=== PATIENT | female | born 1990 | race African-American/Black ===

== ENCOUNTER 2019-03-14 16:01 | Emergency (ER) | payer SELFPAY ==
--- NOTE | 2019-03-14 18:16 | ER Document Report ---
HPI - HPI Time Seen by Provider: 03/14/19 17:44 Pain Level: 2 Notes: Patient is an otherwise healthy 28-year-old female presenting with dental pain that is been ongoing for 2 days. Patient denies any drainage from the area, denies any fevers. Patient reports history of dental pain and dental infections in the past. Patient reports she has no dentist at this time. Patient states she has taken Tylenol without relief. - REPRODUCTIVE Reproductive: DENIES: : Past Medical History - General Information source: Patient - Social History Smoking Status: Never Smoker Frequency of alcohol use: None Drug Abuse: None Family History: Reviewed & Not Pertinent - Medical History Medical History: Negative Surgical Hx: Negative - Immunizations Immunizations up to date: Yes Vertical Provider Document - CONSTITUTIONAL Notes: PHYSICAL EXAMINATION: GENERAL: Well-appearing, well-nourished and in no acute distress. HEAD: Atraumatic, normocephalic. EYES: Pupils equal round extraocular movements intact, conjunctiva are normal. ENT: Nares patent, multiple dental caries noted, but poor dentition. No drainable abscess identified. Erythema noted around tooth numbers 1 2 and 3 as well as 18 and 19. NECK: Normal range of motion LUNGS: No respiratory distress Musculoskeletal: Normal range of motion NEUROLOGICAL: Normal speech, normal gait. PSYCH: Normal mood, normal affect. SKIN: Warm, Dry, normal turgor, no rashes or lesions noted. Course - Re-evaluation Re-evalutation: No drainable abscess identified. Patient will be started on penicillin and encouraged to follow-up with dentist. The patient's emergency department workup and current diagnosis were explained to the patient and or family. Follow-up instructions were provided. Medications if prescribed were discussed. Instructions for when to return to the emergency department including specific worrisome symptoms were discussed with the patient and/or family. - Vital Signs Vital signs: Temp Pulse Resp BP Pulse Ox 98.3 F 85 16 141/97 H 98 03/14/19 16:14 03/14/19 16:14 03/14/19 16:14 03/14/19 16:14 03/14/19 16:14 Discharge - Discharge Clinical Impression: Pain, dental, Dental infection Condition: Stable Disposition: HOME, SELF-CARE Additional Instructions: You have been seen for dental pain. It is very important that you follow-up with a dentist for definitive care. Take antibiotics as prescribed. Please return if you develop fever greater than 101, swelling in your face, vomiting, difficulty breathing or swallowing, or any other symptoms that are concerning to you. For pain you should take ibuprofen 800 mg every 8 hours as needed. [facility] [phone] Prescriptions: Penicillin V Potassium [Penicillin Vk 500 mg Tablet] 500 mg PO BID #20 tablet Forms: Parent Work Note
[2019-03-14 18:40] VITALS: BP 140/88
== END 2019-03-14 18:40 | disposition home or self-care (01) ==
LOC: ER 16:01
DX: K04.7 Periapical abscess without sinus (principal); K08.89 Other specified disorders of teeth and supporting structures
CPT/HCPCS: 99282

== ENCOUNTER 2020-03-27 13:32 | Emergency (ER) | payer SELFPAY ==
[2020-03-27 14:35] LABS: ABSOLUTE BASOPHILS # (AUTO) 0.1 10^3/uL (0.0-0.2); ABSOLUTE EOSINOPHILS # (AUTO) 0.1 10^3/uL (0.0-0.6); ABSOLUTE LYMPHOCYTES (AUTO) 2.8 10^3/uL (0.5-4.7); ABSOLUTE MONOCYTES (AUTO) 0.5 10^3/uL (0.1-1.4); ABSOLUTE NEUT (AUTO) 5.2 10^3/uL (1.7-8.2); BASOPHILS % (AUTO) 1.3 % (0-2); EOSINOPHILS % (AUTO) 0.8 % (0-6); HEMATOCRIT 29.1 % (36.0-47.0); HEMOGLOBIN 9.3 g/dL (12.0-15.5); LYMPHOCYTES % (AUTO) 32.4 % (13-45); MEAN CORPUSCULAR HEMOGLOBIN 23.7 pg (27.0-33.4); MEAN CORPUSCULAR VOLUME 74 fl (80-97); MONOCYTES % (AUTO) 5.4 % (3-13); PLATELET COUNT 440 10^3/uL (150-450); RED BLOOD COUNT 3.92 10^6/uL (3.72-5.28); RED CELL DISTRIBUTION WIDTH 18.1 % (11.5-14.0); SEGMENTED NEUTROPHILS % (AUTO) 60.1 % (42-78); TOTAL CELLS COUNTED % (AUTO) 100 %; WHITE BLOOD COUNT 8.7 10^3/uL (4.0-10.5)
[2020-03-27 15:51] LABS: APPEARANCE,URINE SLIGHTLY-CLOUDY; BILIRUBIN,URINE NEGATIVE (NEGATIVE); COLOR,URINE YELLOW; GLUCOSE, URINE NEGATIVE (NEGATIVE); KETONES,URINE NEGATIVE (NEGATIVE); LEUKOCYTE ESTERASE,URINE NEGATIVE (NEGATIVE); NITRITE,URINE NEGATIVE (NEGATIVE); PROTEIN,URINE 100 mg/dL (NEGATIVE); URINE SPECIFIC GRAVITY 1.016; UROBILINOGEN,URINE NEGATIVE mg/dL (<2.0)
--- NOTE | 2020-03-27 16:09 | ER Document Report ---
ED Medical Screen (RME) - General Stated Complaint: URINARY ISSUES/7 WEEK PREG Notes: Patient is a 29-year-old -Citizen Of [place] female who is G1, P0 at approximately 7 weeks gestation per last normal menstrual cycle who presents to the emergency department the chief complaint of vaginal bleeding that began earlier today at work. She states that a small amount of bright red blood. Denies any pain or cramping. Denies any other discharge. No urinary complaints, constipation or diarrhea. Has not seen OB yet. Is scheduled to follow-up with the health department. She is currently taking vitamins. Denies any other medical problems or allergies. I have treated and performed a rapid initial assessment of this patient. A comprehensive ED assessment and evaluation of the patient, analysis of test results and completion of medical decision making process will be conducted by additional ED providers. PHYSICAL EXAMINATION: GENERAL: Well-appearing, well-nourished and in no acute distress. A&Ox4. Answers questions appropriately. - Related Data Allergies/Adverse Reactions: No Known Allergies Allergy (Unverified 03/14/19 16:02) Past Medical History Renal/ Medical History: Denies: Hx Peritoneal Dialysis - Immunizations Immunizations up to date: Yes Physical Exam - Vital signs Vitals: Temp Pulse Resp BP Pulse Ox 98.9 F 95 20 157/97 H 97 03/27/20 15:12 03/27/20 15:12 03/27/20 15:12 03/27/20 15:12 03/27/20 15:12 Course - Vital Signs Vital signs: Temp Pulse Resp BP Pulse Ox 98.9 F 95 20 157/97 H 97 03/27/20 15:12 03/27/20 15:12 03/27/20 15:12 03/27/20 15:12 03/27/20 15:12 - Laboratory Result Diagrams: 03/27/20 14:20 Laboratory results interpreted by me: 03/27/20 03/27/20 03/27/20 14:20 14:20 14:40 Hgb 9.3 L Hct 29.1 L MCV 74 L MCH 23.7 L RDW 18.1 H Serum HCG, Qual POSITIVE H Urine Protein 100 H Urine Blood LARGE H Urine Ascorbic Acid 40 H
[2020-03-27 16:48] LABS: ALBUMIN 3.7 g/dL (3.5-5.0); ALKALINE PHOSPHATASE 54 U/L (38-126); ANION GAP 8 (5-19); ASPARTATE AMINO TRANSFERASE 15 U/L (14-36); BILIRUBIN,TOTAL 0.2 mg/dL (0.2-1.3); BLOOD UREA NITROGEN 15 mg/dL (7-20); CALCIUM 9.5 mg/dL (8.4-10.2); CARBON DIOXIDE 25 mmol/L (22-30); CHLORIDE 101 mmol/L (98-107); GLUCOSE 94 mg/dL (75-110); POTASSIUM 4.5 mmol/L (3.6-5.0); TOTAL PROTEIN 7.1 g/dL (6.3-8.2)
--- NOTE | 2020-03-27 17:17 | RADIOLOGY REPORT (SQ) ---
EXAM DESCRIPTION: U/S OB TRANSVAG W/DOPPLER IMAGES COMPLETED DATE/TIME: 03/27/2020 5:07 pm REASON FOR STUDY: preg bleeding COMPARISON: None. TECHNIQUE: Transvaginal static and realtime grayscale images acquired of the pelvis. Additional mari cted spectral and color Doppler images recorded. All images stored on PACs. bHCG: Unknown CLINICAL DATES: LMP 02/06/2020 LIMITATIONS: None. FINDINGS: FETUS: Single Living intrauterine . ULTRASOUND EGA: 7 weeks 0 days ULTRASOUND SAMI: 11/13/2020 EFW: Not applicable less than 20 weeks. CRL: 1 cm FHR: 140 beats per minute. SURVEY: Too early to assess. AMNIOTIC FLUID: Adequate amount. PLACENTA: Not yet developed due to early gestation. SUBCHORIONIC BLEED: Yes SIZE OF BLEED: 5.6 x 3.3 x 1.1 cm UTERUS: No masses. No anomalies. CERVICAL LENGTH: 3.2 cm Closed. RIGHT ADNEXA: Ovary not seen. No adnexal free fluid. No adnexal masses. LEFT ADNEXA: Ovary not seen. No adnexal free fluid. No adnexal masses. FREE FLUID: None. OTHER: No other significant finding. IMPRESSION: LIVING INTRAUTERINE . EGA 7 weeks 0 days Trimester of : First trimester - 0 to 13 weeks. TECHNICAL DOCUMENTATION: JOB ID: [id number] 2010 [employer]- All Rights Reserved rev-02/16 Reading location - IP/workstation name: [email or web address]
[2020-03-27] MEDS ORDERED: LABETALOL HCL 200 MG TABLET PO ONE (23:29)
--- NOTE | 2020-03-27 23:36 | ER Document Report ---
ED GI/ - General Chief Complaint: Vag Bleeding, +preg <12wks Stated Complaint: URINARY ISSUES/7 WEEK PREG Time Seen by Provider: 03/27/20 23:28 Primary Care Provider: [facility] [Provider Group] - Follow up as needed Mode of Arrival: Ambulatory Information source: Patient Notes: 29-year-old female presented to ED for complaint of vaginal bleeding. She states she is about 7 weeks 1 para 0. She states she had a small amount of bright red blood and so she came to the emergency room to be examined. She denied any pain or cramping. She has no other discharge or urinary complaint no fever no constipation no diarrhea. She states she is scheduled to follow-up with the health department. She is taking vitamins and is not using any other illicit drugs or smoking or drinking. She was seen in triage where labs and ultrasound were completed before I examined the patient. - HPI Patient complains to provider of: , Vaginal bleeding Onset: Other - 09/26/2020 Timing/Duration: Intermittent Quality of pain: No pain Severity in ED: None Pain Level: Denies Vaginal bleeding (Compared to normal period): Spotting : 1 Para: 0 heart tones (bpm): 140 EDC: 11/13/20 ABO type: A positive Rh factor: Positive OB ultrasound done: Yes Sexual history: Active Associated symptoms: None Exacerbated by: Denies Relieved by: Denies Similar symptoms previously: No Recently seen / treated by doctor: No - Related Data Allergies/Adverse Reactions: No Known Allergies Allergy (Unverified 03/14/19 16:02) Past Medical History - General Information source: Patient - Social History Smoking Status: Never Smoker Frequency of alcohol use: None Drug Abuse: None Family History: Reviewed & Not Pertinent Patient has suicidal ideation: No Patient has homicidal ideation: No - Past Medical History Cardiac Medical History: Reports: None Pulmonary Medical History: Reports: None EENT Medical History: Reports: None Neurological Medical History: Reports: None Endocrine Medical History: Reports: None Renal/ Medical History: Reports: None Malignancy Medical History: Reports: None GI Medical History: Reports: None Musculoskeletal Medical History: Reports None Skin Medical History: Reports None Psychiatric Medical History: Reports: None Traumatic Medical History: Reports: None Infectious Medical History: Reports: None Surgical Hx: Negative Past Surgical History: Reports: None - Immunizations Immunizations up to date: Yes Hx Diphtheria, Pertussis, Tetanus Vaccination: Yes Review of Systems - Review of Systems Constitutional: No symptoms reported EENT: No symptoms reported Cardiovascular: No symptoms reported Respiratory: No symptoms reported Gastrointestinal: No symptoms reported Genitourinary: No symptoms reported Female Genitourinary: , Vaginal bleeding Musculoskeletal: No symptoms reported Skin: No symptoms reported Hematologic/Lymphatic: No symptoms reported Neurological/Psychological: No symptoms reported -: Yes All other systems reviewed and negative Physical Exam - Vital signs Vitals: Temp Pulse Resp BP Pulse Ox 98.9 F 95 20 157/97 H 97 03/27/20 15:12 03/27/20 15:12 03/27/20 15:12 03/27/20 15:12 03/27/20 15:12 Interpretation: Normal - General General appearance: Appears well, Alert - HEENT Head: Normocephalic, Atraumatic Eyes: Normal Pupils: PERRL - Respiratory Respiratory status: No respiratory distress Chest status: Nontender Breath sounds: Normal Chest palpation: Normal - Cardiovascular Rhythm: Regular Heart sounds: Normal auscultation Murmur: No - Abdominal Inspection: Normal Distension: No distension Bowel sounds: Normal Tenderness: Nontender. No: Tender Organomegaly: No organomegaly - Back Back: Normal, Nontender - Extremities General upper extremity: Normal inspection, Nontender, Normal color, Normal ROM, Normal temperature General lower extremity: Normal inspection, Nontender, Normal color, Normal ROM, Normal temperature, Normal weight bearing. No: Mariela's sign - Neurological Neuro grossly intact: Yes Cognition: Normal Orientation: AAOx4 Priyanka Coma Scale Eye Opening: Spontaneous Priyanka Coma Scale Verbal: Oriented Priyanka Coma Scale Motor: Obeys Commands Priyanka Coma Scale Total: 15 Speech: Normal Motor strength normal: LUE, RUE, LLE, RLE Sensory: Normal - Psychological Associated symptoms: Normal affect, Normal mood - Skin Skin Temperature: Warm Skin Moisture: Dry Skin Color: Normal Course - Re-evaluation Re-evalutation: 03/28/20 08:04 Labs and ultrasound were discussed with patient written report of labs and ultrasound were given to patient. Patient is 7 weeks . She does not have any pain or discomfort with . Her main concern was had she had a miscarriage with this . The ultrasound did show a live 7-week intrauterine with a heartbeat of 140 I did explain to patient that most people who have some bleeding with going to have a normal have a healthy baby but she would need to follow-up with CLINICAL CYTOGENETICIST. Patient verbalized understanding and agreement with treatment plan patient was discharged home. - Vital Signs Vital signs: Temp Pulse Resp BP Pulse Ox 97.9 F 91 18 143/90 H 100 03/27/20 23:45 03/27/20 23:45 03/27/20 23:45 03/27/20 23:45 03/27/20 23:45 - Laboratory Result Diagrams: 03/27/20 14:20 03/27/20 14:20 Laboratory results interpreted by me: 03/27/20 03/27/20 03/27/20 14:20 14:20 14:20 Hgb 9.3 L Hct 29.1 L MCV 74 L MCH 23.7 L RDW 18.1 H Sodium 133.7 L Serum HCG, Qual POSITIVE H Beta HCG, Quant 95231.00 H Urine Protein Urine Blood Urine Ascorbic Acid 03/27/20 14:40 Hgb Hct MCV MCH RDW Sodium Serum HCG, Qual Beta HCG, Quant Urine Protein 100 H Urine Blood LARGE H Urine Ascorbic Acid 40 H - Diagnostic Test Radiology reviewed: Image reviewed, Reports reviewed Discharge - Discharge Clinical Impression: Vaginal bleeding affecting early Condition: Stable Disposition: HOME, SELF-CARE Additional Instructions: : You are . care is best started as early in as possible. If you're unsure about continuing this , you should discuss this with your physician or with digital account supervisor at [facility]. You should take only medications approved by your physician. Acetaminophen can safely be taken for minor pains. As a rule, medication for chronic conditions such as asthma or seizures can safely be continued. You should discuss with the physician every medicine you take. Any regular exercise program can be continued. Talk to your physician, however, before engaging in competitive or demanding sports. Alcohol, smoking, and "street drugs" are dangerous to your baby. Cocaine is especially dangerous. Don't use any illicit drugs! BLEEDING DURING EARLY : You have been evaluated for passing blood while . While we take th is symptom very seriously, most women with your degree of bleeding will go on to have a perfectly normal baby. At this time, there is no indication that a miscarriage will occur. (A miscarriage occurs when the fetus is abnormal. There is no medicine or treatment to prevent it.) A more serious cause of bleeding is tubal (or ectopic) . An ultrasound usually can show whether the is in the uterus or in the tube. Sometimes in early , no fetus is seen. In this case, careful follow-up, including repeat blood tests and repeat ultrasound, is necessary. Do not douche or have sex for at least a week, or until OK'd by the doctor. Don't use tampons. Call the doctor or return for re-examination if there is an increase in bleeding or cramping, extreme weakness, fainting, new abdominal pain, fever, or passage of tissue. HIGH BLOOD PRESSURE REQUIRING TREATMENT: Your blood pressure is high. This is called "hypertension." Today's reading was ___157/97 (normal is less than 140/90). Your history and exam suggest that this is not a temporary problem. You need treatment of your blood pressure. If left untreated, high blood pressure greatly increases your risk of heart attack and stroke. Please don't ignore this problem. If you have blood pressure medicine but aren't using it regularly, start taking it again. Some simple things you can do to help are: Get some aerobic exercise for at least 20 minutes on a daily basis. (See your doctor before beginning any new exercise program.) Eat a low-fat diet. Lose excess weight. Avoid salty foods and avoid adding salt to any of the foods you eat. Avoid diet pills, decongestants, "energizing" herbs, and other medicines that elevate blood pressure. There are many different medicines that treat blood pressure. If your medication causes unpleasant side effects, call your doctor. There are others you can try. Treating hypertension is a life-long investment in your health. FOLLOW-UP CARE: If you have been referred to a physician for follow-up care, call the physicians office for an appointment as you were instructed or within the next two days. If you experience worsening or a significant change in your symptoms (very heavy bleeding with large clots of blood, passage of tissue, more severe abdominal / pelvic pain or cramping, feeling faint or severe weakness, fever, etc.), notify the physician immediately or return to the Emergency Department at any time for re-evaluation. OBSTETRIC-GYNECOLOGIC (OB-SHERIFFS DETECTIVE) PHYSICIANS IN [place]: [facility] [address] [place] [address] [phone] Prescriptions: Labetalol HCl 100 mg PO DAILY #30 tablet Forms: Elevated Blood Pressure Referrals: [facility] [Provider Group] - Follow up as needed
[2020-03-27 23:45] VITALS: BP 143/90
== END 2020-03-27 23:45 | disposition home or self-care (01) ==
LOC: ER 13:32
DX: O46.91 Antepartum hemorrhage, unspecified, first trimester (principal); Z3A.01 Less than 8 weeks gestation of pregnancy
CPT/HCPCS: 36415; 76817; 80053; 81001; 84702; 84703; 85025; 86900; 86901; 93976; 99284